=== PATIENT | female | born 1985 | race Caucasian/White ===

== ENCOUNTER → 2016-03-12 | Outpatient (CLI) | payer BC ==
[~2016-03-12] MED LIST: IBUP100SUS PO; PNV-CAP5 PO; TYLE325T5 PO
[2016-03-12 12:26] LABS: BASO % 0.2 % (0.0-1.0); EOS # 0.2 K/mm3 (0.0-0.50); EOS % 2.3 % (0.0-3.0); LARGE UNSTAINED CELL # 0.1 K/mm3 (0.0-0.4); LARGE UNSTAINED CELL % 1.4 % (0.0-4.0); LYMPH # 1.3 K/mm3 (1.5-6.5); MEAN CORPUSCULAR HEMOGLOBIN 30.1 pg (27.0-33.0); MEAN CORPUSCULAR HGB CONC 34.1 g/dl (32.0-36.5); MEAN CORPUSCULAR VOLUME 88.5 fl (80.0-96.0); MONO # 0.3 K/mm3 (0.0-0.8); MONO % 4.4 % (0.0-5.0); NEUTROPHILS # 5.7 K/mm3 (1.8-7.7); NEUTROPHILS % 74.7 % (36.0-66.0); PLATELET COUNT, AUTOMATED 207 k/mm3 (150-450); RED CELL DISTRIBUTION WIDTH 13.4 % (11.5-14.5); WHITE BLOOD COUNT 7.6 K/mm3 (4.0-10.0)
== END ==
LOC: M LAB 11:27
PROVIDERS: ATTEND Obstetrics & Gynecology
DX: Z34.82 Encounter for supervision of other normal pregnancy, second trimester (principal)

== ENCOUNTER → 2016-03-19 | Outpatient (CLI) | payer BC ==
--- NOTE | 2016-03-19 13:17 | REP ---
Obstetric sonography: History: Supervision of . History of intrauterine demise at 26 weeks. Compare with last sonography. Comparison study is dated January 30, 2016. Findings: Scanning demonstrates a viable single intrauterine gestation in a cephalic lie. motion is observed and heart rate is recorded at 144 beats per minute. An anterior grade 1 placenta is seen without evidence of previa. Amniotic fluid is subjectively normal. Closed cervical length is 3.3 cm. No extrauterine abnormality is observed. There has been appropriate interval growth. No anomaly is seen. nose and lips are seen but facial profile is less than optimally seen. This was observed previously. The following additional anatomic structures are identified and felt to be sonographically unremarkable: cranium, choroid plexus, cavum, cerebellum and posterior fossa, lungs, four-chamber heart with left and right ventricular outflow tract views, diaphragm, left-sided stomach, abdominal wall cord insertion, three-vessel umbilical cord, kidneys and bladder, spine, upper and lower extremities. Biometry chart: BPD 7.3 cm 29 weeks 2 days Head circumference 25.7 cm 27 weeks 6 days Abdominal circumference 22.0 cm 26 weeks 3 days Femur length 4.8 cm 26 weeks 1 day Humeral length 4.7 cm 27 weeks 4 days Cerebellar diameter 3.3 cm 28 weeks 1 day HC/AC ratio normal 1.16. Cephalic index normal 0.8. Estimated weight 966 grams, 2 pounds 2 ounces, 27th percentile for 27 weeks 2 days. NERY 14.4 cm. S/D ratio in the umbilical cord artery by Doppler normal 3.06. Impression: Viable single intrauterine gestation at 27 weeks 3 days by today's composite sonographic criteria. Expected gestational age estimate based on prior sonography is 27 weeks 1 day. MARNI by prior sonography is June 17, 2016. In conjunction with prior sonography, anatomic survey is felt to be complete. Signed by Db Adame MD 03/19/2016 06:36 P
== END | disposition home or self-care (01) ==
LOC: M RAD 09:38
PROVIDERS: ATTEND Obstetrics & Gynecology
DX: Z34.82 Encounter for supervision of other normal pregnancy, second trimester (principal); Z3A.29 29 weeks gestation of pregnancy

== ENCOUNTER → 2016-05-16 | Outpatient (REF) | payer BC | LOC: M LAB REF 12:38 | PROVIDERS: ATTEND Obstetrics & Gynecology | DX: Z23 Encounter for immunization (principal) ==

== ENCOUNTER 2016-06-15 01:35 | Inpatient (IN) | payer BC ==
[~2016-06-15] VITALS: Ht 175.3 cm; Wt 81.0 kg
[2016-06-15] VITALS (41 sets, daily range): BP systolic 87–128; BP diastolic 50–85
[2016-06-15] MEDS ORDERED: LACTATED RINGER'S 1000 ML IV STA (02:31)
[2016-06-15] MEDS ORDERED: LR 1,000 ML IV SCH (02:31)
[2016-06-15] MEDS ORDERED: OXYTOCIN DRIP 30 UNITS in APPROPRIATE DILUENT 1 EA IV SCH (02:45)
[2016-06-15 03:13] LABS: MEAN CORPUSCULAR HEMOGLOBIN 28.8 pg (27.0-33.0); MEAN CORPUSCULAR HGB CONC 33.5 g/dl (32.0-36.5); RED CELL DISTRIBUTION WIDTH 14.1 % (11.5-14.5); WHITE BLOOD COUNT 10.6 K/mm3 (4.0-10.0)
--- NOTE | 2016-06-15 03:13 | HPEPDOC ---
Obstetrical History & Physical General Date of Admission Jun 15, 2016 at 01:35 Primary Care Physician: KUSHAL MAS CNM History of Present Illness Patient is a 31 year old female who is a at 39.6 weeks gestation based off of her LMP and consistent with her 1st trimester ultrasound. She initiated care in her first trimester at [facility]. Her present has been uncomplicated. She has a history of a demise at 26 weeks gestation. She presents to labor and delivery today for an elective induction of labor at term due to a history of poor obstetrical outcome. She reports active movement. Denies vaginal bleeding, leaking of fluid, or contractions at this time. Chief Complaint: Induction of labor, Other (History of a demise at 26 weeks gestation) Information Provided By: Patient Age: 31 : 3 Term: 1 Pre-term: 1 Abortions: 0 Livin Care Care: Good Care Number of Visits: 14 Dating Final EDC: Jun 16, 2016 Final EDC by: LMP LMP: Sep 10, 2015 EGA at Admission: 39.6 Antepartum Course Height (inches): 69 Pre- weight (lbs.): 138 Admission Weight (lbs.): 181 Change in Weight (lbs.): 43 Past Medical History Past Obstetrical History #1: Gestation: 40 Type of Delivery: Spontaneous Vaginal Del. (March 2012) Sex of : Female (weighting 8 lbs 1 oz.) Complications: No Past Obstetrical History #2: Gestation: 26 Type of Delivery: Spontaneous Vaginal Del. Complications: Yes (stillbirth October 2014) [employer] History: No pertinent history Past Medical History Medical History Hx of varicella and fractured elbow as a child. Surgical History: Denies/None Family History Significant Family History: Cancer, Heart disease Social History Marital Status: Family situation: Spouse/partner home Psychosocial History: No pertinent psych hx * Smoker: non-smoker Alcohol: Denies Drugs: denies Abuse Violence Screening Have you been hit/kicked/slapp: No Have you been sexually assault: No Imunizations Tdap status: current Allergies Coded Allergies: No Known Drug Allergy (Verified Allergy, Unknown, 11/20/14) Medications Scheduled (Pnv-Total) Cap 1 PO DAILY Physical Examination Physical Examination GENERAL: Alert and oriented times three. BREAST: . ABDOMEN: Gravid and non-tender to touch. FETUS: Is vertex (VTX) by sterile vaginal examination (SVE), fetus is vertex ( VTX) by Devyn. HEART RATE: Regular rate and rhythm. LUNGS: Clear to auscultation (CTA). EXTREMITIES: No edema. No clonus. Vital Signs/I&O 109/70, 86, 18, 98.8 Laboratory Data 24H LABS Laboratory Tests 2 06/15/16 01:47: Serology Scanned Report Hepatitis B Testing Urine Culture: No Growth Pertinent Laboratoy Data Blood Type: A+ RBC Antibody Screen: Negative HIV: Negative Hepatitis B: Negative Rapid Plasma Reagin: Nonreactive Rubella: Immune Chlamydia/Gonorrhea: Negative Group B Streptococcus: Negative Quad Screen Test: Declined Glucose Tolerance Test: 84 Vaginal Examination Dilation: 4 cm Effacement: 40-50% Station: -2 Cervical Consistency: Soft Cervical Position: Middle Presentation: Cephalic presentation Position: Vertex (occiput) Assessment Heart Rate (FHR): 130 Variability: Moderate Accelerations: Positive Decelerations: None Tocometer Contractions: Yes Frequency: other (2-7) Multi-drug resistant Organism: No history of MDRO Assessment/Plan Assessment IUP at 39 weeks 6 days gestation Category I FHR tracing Hx of demise at 26 weeks gestation in 2014 elective induction of labor at term Plan Patient admitted to labor and delivery. IV and labs per protocol. Clear liquid diet. OOB ad warren. IOL reviewed with patient as it was in the office to include risks/benefits. Patient desires IOL. Pitocin ordered. Medication reviewed with patient. Anticipate cervical change and . KUSHAL MAS CNM Jun 15, 2016 03:13
[2016-06-15] MEDS ORDERED: FENTANYL 2MCG/ML ROPIVACAINE 0.2% IN 0.9% NACL 200ML IVBAG As Ordered ONE (06:03)
[2016-06-15] MEDS ORDERED: NALOXONE INJ 0.4 MG/1 ML VIAL (J2310) IV PRN (07:15)
[2016-06-15] MEDS ORDERED: ONDANSETRON 4MG/2ML VIAL (J2405) IV PRN (07:15)
[2016-06-15] MEDS ORDERED: EPIDURAL/PCA KEYS XX PRN (07:15)
[2016-06-15] MEDS ORDERED: LACTATED RINGER'S 1000 ML IV PRN (07:15)
[2016-06-15] MEDS ORDERED: REFRIGERATOR IV KEYS XX PRN (07:15)
[2016-06-15] MEDS ORDERED: diphenhydrAMINE INJ 50MG/ML VIAL (J1200) IV PRN (07:15)
[2016-06-15] MEDS ORDERED: EPIDURAL COMMENT XX SCH (07:15)
[2016-06-15] MEDS ORDERED: FENTANYL/ROPIVACAINE/NACL BAG 200 ML EPIDURAL SCH (07:15)
[2016-06-15] MEDS: ePHEDrine SULFATE 25 MG/5 ML(5MG/ML) SYRINGE IV PRN ×3 (08:45→09:05)
--- NOTE | 2016-06-15 09:09 | IPNPDOC ---
Date Seen The patient was seen on 06/15/16. Progress Note SUBJECTIVE: Patient reports she is comfortable with her epidural. OBJECTIVE: FHR: 130, moderate variability, positive accelerations, no decelerations. Contractions every 3 to 4 minutes. PHYSICAL EXAMINATION: SVE: 5/100/-1; AROM to a moderate amount of light meconium after consent from patient. VITAL SIGNS: Please see below. ASSESSMENT: IUP at 39.6 weeks gestation, Category PLAN: Continue with Pitocin induction. Anticipate cervical dilation and . VS, I&O, 24H, Fishbone Vital Signs/I&O Vital Signs Date Time Temp Pulse Resp B/P Pulse Ox O2 Delivery O2 Flow Rate FiO2 06/15/16 08:49 86 101/61 06/15/16 08:48 18 06/15/16 07:10 98.3 Laboratory Data 24H LABS Laboratory Tests 2 06/15/16 01:47: Serology Scanned Report Hepatitis B Testing 06/15/16 03:00: CBC/BMP Laboratory Tests 06/15/16 03:00 Red Blood Count 3.75 L, Mean Corpuscular Volume 86.0, Mean Corpuscular Hemoglobin 28.8, Mean Corpuscular Hemoglobin Concent 33.5, Red Cell Distribution Width 14.1 KUSHAL MAS CNM Jun 15, 2016 09:09
--- NOTE | 2016-06-15 10:17 | DNPDOC ---
[facility] Delivery Note Delivery Note Selene is a 31-year-old female who is now a G [3] P 2102 at 39.6 weeks' gestation who presented to labor and delivery for induction of labor due to a history of a 26 week demise in 2014. Induction of labor is elective. She received Pitocin for induction of labor. She requested an epidural for pain management. Dr. Edwards aware of light meconium. She progressed to fully dilated at 0917. Patient pushed to a spontaneous vaginal delivery at 0936 to a living male in the JOHNATHON position with restitution to L OT. Nuchal cord 1 loose. Shoulders delivered with ease and the corpus immediately followed. Baby placed on maternal abdomen crying and active. Cord clamped 2 and cut by provider after pulsation ceased. Spontaneous delivery of intact placenta with a three- vessel cord by Linton mechanism at 0947. Uterine hemostasis achieved by rapid infusion of IV Pitocin and uterine fundal massage. Perineum and vagina inspected and found to have a first-degree perineal laceration that was repaired with a 3. 0 Vic[address]ide [address]1. EBL 350. Infant's 8/9. Weight 7 lbs. 11 oz., 3474 g. Ida's name is Emmett and mom is breast-feeding . Mom and baby are both stable. KUSHAL MAS CNM Jun 15, 2016 10:16
[2016-06-15] MEDS ORDERED: ANUSOL HC CREAM 30GM TOP PRN (11:00)
[2016-06-15] MEDS ORDERED: DIBUCAINE 1% OINTMENT 30GM TOP PRN (11:00)
[2016-06-15] MEDS ORDERED: MEASLES,MUMPS,RUBELLA VACCINE INJ (MMR-II) (90707) SC SCH (11:00)
[2016-06-15] MEDS ORDERED: RHOGAM 300 MCG (1500 IU) INJ (J2790) IM SCH (11:00)
[2016-06-15] MEDS ORDERED: METHYLERGONOVINE MALEATE 0.2 MG TAB PO PRN (11:00)
[2016-06-15] MEDS ORDERED: DOCUSATE SODIUM 100 MG CAP PO PRN (11:00)
[2016-06-15] MEDS: IBUPROFEN 800 MG TAB PO PRN ×2 (13:05→20:32)
[2016-06-15] MEDS: ACETAMINOPHEN 500 MG TAB PO PRN ×2 (17:12→23:49)
[2016-06-16] MEDS: IBUPROFEN 800 MG TAB PO PRN ×3 (05:15→21:31)
[2016-06-16] MEDS: ACETAMINOPHEN 500 MG TAB PO PRN ×3 (05:15→19:42)
[2016-06-16 05:44] VITALS: BP 105/64
[2016-06-16] MEDS: PRENATAL VITAMIN TAB PO SCH (09:26)
[2016-06-16 18:00] VITALS: BP 119/71
[2016-06-16 21:22] VITALS: BP 119/71
[2016-06-17] MEDS: ACETAMINOPHEN 500 MG TAB PO PRN (06:12)
[2016-06-17] MEDS: IBUPROFEN 800 MG TAB PO PRN (06:12)
[2016-06-17 06:38] VITALS: BP 116/64
[2016-06-17] MEDS: PRENATAL VITAMIN TAB PO SCH (08:31)
[2016-06-17] MEDS ORDERED: ACET50TA PO (09:56)
[2016-06-17] MEDS ORDERED: IBUP-1114 PO (09:56)
[2016-06-17] MEDS ORDERED: PRENTAB9 PO (10:04)
== END 2016-06-17 10:50 | disposition home or self-care (01) | DRG 560 ==
LOC: M LDI 01:35 → M OBS 11:41
PROVIDERS: ADMIT Advanced Practice Midwife; ATTEND Advanced Practice Midwife
PROC: 10E0XZZ Delivery of Products of Conception, External Approach (ICD-10-PCS; principal; 2016-06-15)
PROC: 0HQ9XZZ Repair Perineum Skin, External Approach (ICD-10-PCS; 2016-06-15)
PROC: 10907ZC Drainage of Amniotic Fluid, Therapeutic from Products of Conception, Via Natural or Artificial Opening (ICD-10-PCS; 2016-06-15)
PROC: 3E033VJ Introduction of Other Hormone into Peripheral Vein, Percutaneous Approach (ICD-10-PCS; 2016-06-15)
DX: O69.81X0 Labor and delivery complicated by cord around neck, without compression, not applicable or unspecified (principal); O77.0 Labor and delivery complicated by meconium in amniotic fluid; O70.0 First degree perineal laceration during delivery; Z3A.39 39 weeks gestation of pregnancy; Z37.0 Single live birth

== ENCOUNTER 2018-01-14 12:13 | Emergency (ER) | payer BC ==
[2018-01-14] MEDS: BENZONATATE 100 MG CAP PO (13:04)
[2018-01-14] MEDS: GI COCKTAIL 50ML BTL(HYOSCYAMINE/MAALOX/LIDOCAINE VISCOUS)(1:3:1) PO (13:04)
[2018-01-14] MEDS: IPRATROPIUM 0.5MG/ALBUTEROL 2.5MG INH SOL UD 3ML (DUONEB)(J7620) NEB (13:13)
[2018-01-14 13:17] LABS: BASO % 0.4 % (0.0-1.0); EOS % 0.3 % (0.0-3.0); HEMATOCRIT 42.3 % (36.0-47.0); HEMOGLOBIN 14.2 g/dl (12.0-15.5); IMMATURE GRANULOCYTE % 0.3 % (0-3.0); LYMPH % 13.4 % (24.0-44.0); MEAN CORPUSCULAR HEMOGLOBIN 26.7 pg (27.0-33.0); MEAN CORPUSCULAR HGB CONC 33.6 g/dl (32.0-36.5); MEAN CORPUSCULAR VOLUME 79.5 fl (80.0-96.0); MONO # 0.4 10^3/uL (0.0-0.8); MONO % 5.6 % (0.0-5.0); NEUTROPHILS # 5.9 10^3/uL (1.8-7.7); PLATELET COUNT, AUTOMATED 296 10^3/uL (150-450); RED BLOOD COUNT 5.32 10^6/uL (4.00-5.40); WHITE BLOOD COUNT 7.4 10^3/uL (4.0-10.0)
[2018-01-14 13:52] LABS: INFLUENZA A AMPLIFICATION NEGATIVE (NEGATIVE); INFLUENZA B AMPLIFICATION NEGATIVE (NEGATIVE)
[2018-01-14] MEDS: AZITHROMYCIN 250 MG TAB PO (14:03)
== END 2018-01-14 14:19 | disposition home or self-care (01) ==
LOC: M ED 12:13
DX: J18.9 Pneumonia, unspecified organism (principal); Z79.3 Long term (current) use of hormonal contraceptives
CPT/HCPCS: 71046

== ENCOUNTER → 2019-03-23 | Outpatient (REF) | payer BC ==
[~2019-03-23] MED LIST changes: +AZIT-12 PO; +CHERSYP3 PO; +IBUP-1114 PO; +IBUP100S44 PO; -IBUP100SUS PO; +MAPA500T2 PO; +PRENTAB9 PO; +PROAAER10 INH; +SPRI28TA; +TESS100C PO
[2019-03-23 18:32] LABS: HEMATOCRIT 39.4 % (36.0-47.0); MEAN CORPUSCULAR HEMOGLOBIN 28.1 pg (27.0-33.0); MEAN CORPUSCULAR VOLUME 85.3 fl (80.0-96.0); PLATELET COUNT, AUTOMATED 281 10^3/uL (150-450); RED BLOOD COUNT 4.62 10^6/uL (4.00-5.40); WHITE BLOOD COUNT 6.4 10^3/uL (4.0-10.0)
[2019-03-23 19:34] LABS: HCG, SERUM QUANTITATIVE 33204 MIU/ML
[2019-03-23 19:45] LABS: HIV 1&2 SCREEN CENTAUR NEGATIVE (NEGATIVE)
[2019-03-25 10:26] LABS: RUBELLA IgG QUALITATIVE IMMUNE (IMMUNE)
[2019-03-25 11:48] LABS: HEPATITIS C VIRUS ABY INDEX < 0.0 INDEX (<0.8)
== END ==
LOC: M LAB REF 16:48
PROVIDERS: ATTEND Obstetrics & Gynecology
DX: O36.80X0 Pregnancy with inconclusive fetal viability, not applicable or unspecified (principal)

== ENCOUNTER → 2019-03-28 | Outpatient (CLI) | payer BC | LOC: M RAD 18:56 | PROVIDERS: ATTEND Obstetrics & Gynecology | DX: Z53.9 Procedure and treatment not carried out, unspecified reason (principal) ==

== ENCOUNTER → 2019-04-01 | Outpatient (CLI) | payer BC ==
--- NOTE | 2019-04-01 13:43 | REP ---
First trimester obstetric sonography: History: with inconclusive viability. Supervision of . Findings: Transabdominal scanning confirms the presence of a single living intrauterine gestation in a free-floating lie. The crown-rump length measures 16.9 mm which corresponds with a gestational age estimate of 8 weeks 1 day. heart rate is recorded at 167 beats per minute. No subchorionic hemorrhage is seen. There is a hypoechoic cystic area in the maternal left ovary 2.2 cm in diameter consistent with corpus luteum. Impression: Viable single intrauterine gestation at 8 weeks 1 day by crown-rump length. MARNI by sonography November 10, 2019. No complication is identified. Electronically Signed by Db Adame MD 04/01/2019 01:56 P
== END ==
LOC: M RAD 09:20
PROVIDERS: ATTEND Obstetrics & Gynecology
DX: O36.80X0 Pregnancy with inconclusive fetal viability, not applicable or unspecified (principal); Z3A.08 8 weeks gestation of pregnancy

== ENCOUNTER → 2019-06-22 | Outpatient (CLI) | payer BC ==
--- NOTE | 2019-06-23 04:21 | REP ---
Clinical: Anatomical evaluation. Comparison: 04/01/2019 . Findings: Examination demonstrates a single live intrauterine in cephalic presentation. motion is identified by technologist. Placenta is noted posterior and grade zero without evidence for placenta previa or abruption. Amniotic fluid volume is normal. Cervix measures 4.5 cm in length and appears closed. No evidence for nuchal cord. Gestational age by LMP 20 weeks 1 day with MARNI 11/08/2019 . Gestational age by current measurements 20 weeks 2 days with MARNI 11/07/2019 . FHR equals 160 beats per minute. BPD 4.9 cm 20 weeks 6 days HC 17.9 cm 20 weeks 2 days AC 14.7 cm 20 weeks 0 days FL 3.2 cm 20 weeks 1 day HL 3.0 cm 20 weeks 0 days HC/AC ratio 1.22 Estimated weight 333 grams ( 48th percentile). Anatomical assessment demonstrates normal structures including cranium, choroid plexus, cavum, cerebellum/posterior fossa, facial features, lungs, four-chamber heart/ventricular outflow tracts, diaphragm, stomach, cord insertion/three-vessel cord, kidneys/bladder, spine, and extremities. Impression: Single live intrauterine in cephalic presentation demonstrating appropriate interval growth. Anatomical assessment is complete and normal. Electronically Signed by Antwan Choi MD 06/23/2019 04:11 A
== END ==
LOC: M RAD 16:10
PROVIDERS: ATTEND Obstetrics & Gynecology
DX: Z34.82 Encounter for supervision of other normal pregnancy, second trimester (principal); Z36.89 Encounter for other specified antenatal screening; Z3A.20 20 weeks gestation of pregnancy

== ENCOUNTER → 2019-07-08 | Outpatient (CLI) | payer BC | LOC: M LABSMTC 12:30 | PROVIDERS: ATTEND Family Medicine | DX: Z11.59 Encounter for screening for other viral diseases (principal) | CPT/HCPCS: C9803; U0003 ==

== ENCOUNTER → 2019-08-01 | Outpatient (CLI) | payer BC ==
[2019-08-01 12:38] LABS: HEMATOCRIT 33.8 % (36.0-47.0); HEMOGLOBIN 11.3 g/dl (12.0-15.5); MEAN CORPUSCULAR HEMOGLOBIN 30.4 pg (27.0-33.0); MEAN CORPUSCULAR HGB CONC 33.4 g/dl (32.0-36.5); MEAN CORPUSCULAR VOLUME 90.9 fl (80.0-96.0); PLATELET COUNT, AUTOMATED 227 10^3/uL (150-450); RED BLOOD COUNT 3.72 10^6/uL (4.00-5.40); WHITE BLOOD COUNT 8.9 10^3/uL (4.0-10.0)
== END ==
LOC: M LAB 11:11
PROVIDERS: ATTEND Obstetrics & Gynecology
DX: Z34.82 Encounter for supervision of other normal pregnancy, second trimester (principal); Z36.89 Encounter for other specified antenatal screening

== ENCOUNTER 2019-11-01 21:04 | Inpatient (IN) | payer BC ==
[~2019-11-01] VITALS: Ht 175.3 cm; Wt 86.5 kg
[2019-11-01] MEDS ORDERED: LR 1,000 ML IV SCH (21:44)
[2019-11-01] MEDS ORDERED: LACTATED RINGER'S 1000 ML IV STA (21:44)
[2019-11-01] MEDS ORDERED: AMPICILLIN SOD 2 GM in D5W MINI-BAG PLUS 100 ML IV ONE (21:45)
[2019-11-01] MEDS ORDERED: PRENTAB9 PO (22:11)
[2019-11-01 22:23] LABS: HEMATOCRIT 33.9 % (36.0-47.0); HEMOGLOBIN 10.8 g/dl (12.0-15.5); MEAN CORPUSCULAR HEMOGLOBIN 26.1 pg (27.0-33.0); MEAN CORPUSCULAR HGB CONC 31.9 g/dl (32.0-36.5); MEAN CORPUSCULAR VOLUME 81.9 fl (80.0-96.0); PLATELET COUNT, AUTOMATED 272 10^3/uL (150-450); RED BLOOD COUNT 4.14 10^6/uL (4.00-5.40); WHITE BLOOD COUNT 13.6 10^3/uL (4.0-10.0)
[2019-11-01] MEDS ORDERED: FENTANYL 2MCG/ML ROPIVACAINE 0.2% IN 0.9% NACL 100ML IVBAG As Ordered ONE (22:56)
[2019-11-02] MEDS ORDERED: ePHEDrine SULFATE 25 MG/5 ML(5MG/ML) SYRINGE IV PRN (00:30)
[2019-11-02] MEDS ORDERED: diphenhydrAMINE 50MG/ML VIAL (J1200) IV PRN (00:30)
[2019-11-02] MEDS ORDERED: ONDANSETRON 4MG/2ML VIAL IV PRN (00:30)
[2019-11-02] MEDS ORDERED: REFRIGERATOR IV KEYS XX PRN (00:30)
[2019-11-02] MEDS ORDERED: EPIDURAL COMMENT XX SCH (00:30)
[2019-11-02] MEDS ORDERED: EPIDURAL/PCA KEYS XX PRN (00:30)
[2019-11-02] MEDS ORDERED: LACTATED RINGER'S 1000 ML IV PRN (00:30)
[2019-11-02] MEDS ORDERED: FENTANYL/ROPIVACAINE/NACL BAG 100 ML EPIDURAL SCH (00:30)
[2019-11-02] MEDS ORDERED: NALOXONE INJ 0.4MG/1ML VIAL (J2310 PER 1MG) IV PRN (00:30)
[2019-11-02] MEDS ORDERED: AMPICILLIN SOD 1 GM in D5W 50 ML IV SCH (02:00)
[2019-11-02] MEDS ORDERED: OXYTOCIN 30 UNITS IN 0.9% NaCl 500ML IV BAG (J2590) As Ordered ONE (02:36)
[2019-11-02] MEDS ORDERED: OXYTOCIN DRIP 30 UNITS in IV 1 EA IV SCH (03:24)
[2019-11-02] MEDS ORDERED: ANUSOL HC CREAM 30GM TOP PRN (03:30)
[2019-11-02] MEDS ORDERED: DOCUSATE SODIUM 100 MG CAP PO PRN (03:30)
[2019-11-02] MEDS ORDERED: METHYLERGONOVINE MALEATE 0.2 MG TAB PO PRN (03:30)
[2019-11-02] MEDS ORDERED: IBUPROFEN 600MG TAB PO PRN (03:30)
[2019-11-02] MEDS ORDERED: MEASLES,MUMPS,RUBELLA VACCINE INJ (MMR-II) (90707) SC SCH (03:30)
[2019-11-02] MEDS ORDERED: ACETAMINOPHEN TAB 650MG DOSE (2X325MG) PO PRN (03:30)
[2019-11-02] MEDS ORDERED: RHOGAM 300 MCG (1500 IU) INJ (J2790) IM SCH (03:30)
[2019-11-02] MEDS ORDERED: DIBUCAINE 1% OINTMENT 30GM TOP PRN (03:30)
[2019-11-02 05:15] VITALS: BP 110/61
[2019-11-02] MEDS: PRENATAL VITAMINS CHEWABLE TABLET PO SCH (07:36)
[2019-11-02] MEDS: IBUPROFEN 800 MG TAB PO PRN ×2 (07:37→16:11)
[2019-11-02] MEDS: ACETAMINOPHEN 500 MG TAB PO PRN ×2 (11:15→19:58)
[2019-11-02 18:05] VITALS: BP 110/59
--- NOTE | 2019-11-02 21:27 | HPE ---
DATE OF ADMISSION: 11/01/2019 Svetlana is a 34-year-old female, 7, para 3-0-0-3, who presented at 39-2/7 weeks gestation with complaints of contractions every 2-3 minutes. Upon evaluation in labor and delivery, she was found to be in active labor. At this point, a decision was made to admit. Her record reviewed, which was essentially unremarkable. LABORATORY: Blood type is A positive, rubella immune, hepatitis negative, HIV negative, GC/chlamydia negative. One-hour sugar testing was within normal limits.. Her GBS is positive. PAST MEDICAL HISTORY: Denies. PAST SURGICAL HISTORY: Denies. SOCIAL HISTORY: Denies any alcohol, drugs, or cigarette smoking. REVIEW OF SYSTEMS: Unremarkable. MEDICATIONS: vitamin. ALLERGIES: No known drug allergies. PHYSICAL EXAMINATION: HEENT: Grossly within normal limits. ABDOMEN: Soft, nontender, nondistended. EXTREMITIES: No clubbing, cyanosis, or edema. VAGINAL EXAM: 7 cm, 90% effaced, fetus at -2 station in vertex position with bulging membranes. Tracing reviewed. Category 1 tracing. Contractions every 3-4 minutes. ASSESSMENT: 1. Intrauterine at 39-2/7 weeks gestation in active labor. 2. GBS positive. PLAN: Admit to labor and delivery. Routine labs sent. Pain management discussed. Patient up for an epidural. Ampicillin started for GBS prophylaxis. Will continue to monitor. Anticipate delivery. MTDD
[2019-11-03] MEDS: ACETAMINOPHEN 500 MG TAB PO PRN ×2 (01:50→11:20)
[2019-11-03 06:00] VITALS: BP 100/63
[2019-11-03] MEDS: IBUPROFEN 800 MG TAB PO PRN (08:02)
[2019-11-03] MEDS: PRENATAL VITAMINS CHEWABLE TABLET PO SCH (08:02)
[2019-11-03] MEDS ORDERED: BOOSTRIX/ADACEL VACCINE (DIPHTH/PERTUSS/ACELL/TETANUS) 0.5ML SYR IM ONE (09:00)
[2019-11-03] MEDS ORDERED: INFLUENZA QUADRIVALENT PF VACCINE 0.5ML SYRINGE IM ONE (09:00)
--- NOTE | 2019-11-15 13:04 | DN ---
DATE OF DELIVERY: 11/02/2019 DESCRIPTION OF DELIVERY: Svetlana is a 34-year-old female 7, para 3,0,3,3 who presented at 39-2/7 weeks gestation in active labor. She progressed to fully dilated, had artificial rupture of membranes, clear fluid. She then pushed and delivered a live female in left occiput anterior position, Apgars 9 and 9, weight 8 pounds 10 ounces. Placenta delivered manually, three vessel cord. First degree midline perineal laceration noted which was repaired using 2- 0 chromic. Estimated blood loss 250 mL. Both mother and baby in stable condition. [facility]
== END 2019-11-03 12:55 | disposition home or self-care (01) | DRG 560 ==
LOC: M LDO 21:04 → M LDI 21:39 → M OBS 11-02 05:10
PROVIDERS: ADMIT Obstetrics & Gynecology; ATTEND Obstetrics & Gynecology
PROC: 10E0XZZ Delivery of Products of Conception, External Approach (ICD-10-PCS; principal; 2019-11-02)
PROC: 0HQ9XZZ Repair Perineum Skin, External Approach (ICD-10-PCS; 2019-11-02)
DX: O99.824 Streptococcus B carrier state complicating childbirth (principal); Z37.0 Single live birth; Z3A.39 39 weeks gestation of pregnancy; O70.0 First degree perineal laceration during delivery